=== PATIENT | female | born 1990 | race Caucasian/White ===

== ENCOUNTER 2018-06-07 13:58 | Emergency (ER) | payer MEDICAID ==
[2018-06-07 14:02] VITALS: BP 97/54
--- NOTE | 2018-06-07 14:56 | EDPHY ---
H & P Time Seen by Provider: 06/07/18 14:32 HPI/ROS: CHIEF COMPLAINT: Left knee pain HISTORY OF PRESENT ILLNESS: Patient was playing soccer yesterday and was hit with the knee was flexed on the medial side, twisting it. Presents today with pain especially bending or walking on it. No weakness or numbness in the foot and no ankle or hip symptoms. REVIEW OF SYSTEMS: No lacerations, feels a bit unstable when she walks. PAST MEDICAL HISTORY: Previous right knee surgery, previous left complex laceration Social history: Nonsmoker General Appearance: Alert and conversant, cooperative. Left knee does not have large effusion. The old scar but no acute bruising or laceration. Juan's negative, stable to anterior and posterior drawer but some pain with anterior drawer. Stable to varus and valgus but pain on the medial collateral ligament with valgus stress. No focal point bony tenderness. Distal neurovascular intact. Emergency Department course/MDM: X-ray personally interpreted as negative. Likely MCL sprain, cannot fully exclude internal injury including ACL or PCL. Patient warned orthopedic follow-up mandatory. Immobilizer, ice and NSAIDs, orthopedic follow-up. Smoking Status: Never smoked Constitutional: Initial Vital Signs Temperature (C) 36.6 C 06/07/18 13:58 Heart Rate 80 06/07/18 13:58 Respiratory Rate 16 06/07/18 13:58 Blood Pressure 97/54 L 06/07/18 13:58 O2 Sat (%) 98 06/07/18 13:58 O2 Delivery Mode Room Air Allergies/Adverse Reactions: No Known Allergies Allergy (Unverified 06/13/14 14:59) Home Medications: Medication Instructions Recorded NK [No Known Home Meds] 06/07/18 MDM/Departure - MDM Imaging Results: Imaging Impressions Knee X-Ray 06/07/18 14:03 Impression: Joint effusion with no acute osseous findings. Negative left knee x-ray personally interpreted. Imaging: I viewed and interpreted images myself - Depart Disposition: Home, Routine, Self-Care Clinical Impression: Sprain of medial collateral ligament of left knee, initial encounter Condition: Good Instructions: Knee Sprain (ED), Knee Immobilizer (ED) Referrals: Víctor Hoff MD [Medical Doctor] - As per Instructions (Please follow-up with this orthopedic surgeon within the next week for re-evaluation. Otherwise activity as tolerated.)
== END 2018-06-07 14:50 | disposition home or self-care (01) ==
DX: S83.412A Sprain of medial collateral ligament of left knee, initial encounter (principal); W50.0XXA Accidental hit or strike by another person, initial encounter; Y93.66 Activity, soccer